=== PATIENT | female | born 1985 | race Hispanic/Latino ===

== ENCOUNTER 2018-12-19 08:05 | Emergency (ER) | payer BC ==
--- OUTSIDE RECORDS SUMMARY | 2018-12-19 08:07 | XMS REPORT ---
:1985 [facility] Address [address] [place] [address] [address] [place] [address] Care Team Providers Name Role Phone Unavailable Unavailable Unavailable Payers Payer Name Policy Type Policy Number Effective Date Expiration Date Problems This patient has no known problems. Allergies, Adverse Reactions, Alerts This patient has no known allergies or adverse reactions. Medications This patient has no known medications. Results Test Description Test Time Test Comments Text Results Atomic Results Result Comments - MRI 2018-06-25 FAX: Tanvir Wilks MD [phone] Camps: PM St: REG FAX: Tamiko BRAIN 11:08:00 Gaurav Page III [phone] W WO CONT Name: YUMIKO CASTILLO [facility] : 1985 Age/S: 32/F [address] [place] Unit # : [id number] Loc: [place] [address] Phys : Gaurav Page III, MD Acct : [id number] Dis Date: Status: REG CLI PHONE #: [phone] Exam Date: 06/25/2018 1050 FAX #: Reason: IACS EXAMS: CPT: [id number] MRI BRAIN W WO CONT 16469 MRI BRAIN WITHOUT AND WITH CONTRAST; IAC PROTOCOL HISTORY: Left pulsatile tinnitus TECHNIQUE: Multiplanar and multiple pulse sequences were obtained throughout the brain without and with gadolinium (19 mL MultiHance). Location: U19. COMPARISON: None FINDINGS: Diffusion weighted imaging shows no evidence of acute ischemia. Pituitary and posterior fossa are unremarkable. No abnormal T2 FLAIR signal noted within the white matter. No hemorrhage, mass, mass effect, hydrocephalus, midline shift or extra-axial fluid collection. No abnormal intracranial enhancement. Additional thin cuts were obtained through the internal auditory canals which are within normal limits. Renal nerves VII and VIII are unremarkable. No abnormal enhancement. No mass. The mastoid air cells are clear. The paranasal sinuses are clear. The globes are unremarkable. IMPRESSION: No evidence of acute ischemia. Unremarkable MRI brain without and with contrast. The internal auditory canals and cranial nerves VII and VIII are within normal limits. at 1108 Reported and signed by: Stephanie Berrios M.D. CC: Tanvir Woods MD; Gaurav Page III, MD Technologist: Mckay Dick, RT(R)(MR) Transcribed Date/Time/By: 06/25/2018 (1108) :[email or web address] Orig Print D/T: S: 06/25/2018 ( 1111) PAGE 1 Signed Report - [facility] 2018-06-25 FAX: Tanvir Wilks MD [phone] Camps: PM St: REG FAX: Y HEAD 11:08:00 Gaurav Page III [phone] W/O --------- CONT Name: CHAD AWANYUMIKO [facility] : 1985 Age/S: 32/F [address] [place] Unit # : [id number] Loc: [place] [address] Phys : Gaurav Page III, MD Acct : [id number] Dis Date: Status: REG CLI PHONE #: [phone] Exam Date: 06/25/2018919 FAX #: Reason: PULSATILE TINNITUS EXAMS: CPT: [id number] MRA HEAD W/O CONT 03597 MRA HEAD WITHOUT CONTRAST HISTORY: Pulsatile tinnitus left ear. COMPARISON: None. TECHNIQUE: 3-D time-of- flight and MIP images were obtained through the [place]. Location: U19. FINDINGS: The distal left vertebral artery is either hypoplastic or occluded. The [place] is intact. No intracranial large vessel occlusion or aneurysm. IMPRESSION: The left vertebral artery is either hypoplastic or occluded. No aneurysm. Electronically Signed by Yuriy Berrios on 2018 at 1108 Reported and signed by: Stephanie Berrios M.D. CC: Tanvir Woods MD; Gaurav Page III, MD Technologist: Mckay Dick, RT(R)(MR) Transcribed Date/Time/By: 06/25/2018 (1108) :[email or web address] Orig Print D/T: S: 06/25/2018 (1111) PAGE 1 Signed Report
[2018-12-19] MEDS ORDERED: IBUPROFEN 400 MG TAB ONE (08:23)
[2018-12-19] MEDS ORDERED: ACETAMINOPHEN 500 MG TAB ONE (08:23)
--- NOTE | 2018-12-19 09:45 | EDPHYS ---
Physician Documentation [facility] Name: Shanti Olvera Age: 33 yrs Sex: Female : 1985 Arrival Date: 12/19/2018 Time: 08:07 Bed 5 Private MD: ED Physician Robby Smith HPI: 12/19 08:27 This 33 yrs old Female presents to ER via Ambulatory with complaints of Toe cp Injury. 08:27 The patient presents with pain, that is acute, tenderness. The complaints affect the cp right foot. Context: resulted from 5 lb weight dropping onto foot. Onset: The symptoms/episode began/occurred yesterday. Associated signs and symptoms: Pertinent negatives: calf tenderness, numbness. 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 - Social history:: Smoking status: Patient/guardian denies using tobacco. - Ebola Screening: : No symptoms or risks identified at this time. ROS: 08:35 Constitutional: Negative for body aches, chills, fever. cp 08:35 MS/extremity: Positive for ecchymosis, pain, swelling, tenderness, of the right foot, Negative for paresthesias. 08:35 Neuro: Negative for numbness. 08:35 All other systems are negative. Exam: 08:40 Constitutional: The patient appears in no acute distress, alert, awake, well developed, cp well nourished. 08:40 Head/Face: Normocephalic, atraumatic. cp 08:40 Musculoskeletal/extremity: Extremities: grossly normal except: noted in the right fourth toe and distal aspect right foot dorsal side: ecchymosis, pain, swelling, tenderness, There is no evidence of decreased ROM, deformity, Perfusion: the extremity is normally perfused throughout, Sensation intact. 08:40 Skin: cellulitis, is not appreciated, no rash present. Vital Signs: 08:27 BP 146 / 95; Pulse 117; Resp 18; Pulse Ox 99% on R/A; Weight 81.65 kg; Height 5 ft. 5 iw in. (165.10 cm); Pain 0/10; 08:36 Temp 97.9(TE); ph 08:27 Body Mass Index 29.95 (81.65 kg, 165.10 cm) iw Procedures: 09:10 Splinting: Splint applied to right foot using post-op shoe. applied by nurse. Examined cp by me, post splint application: neurovascular intact, Patient tolerated well. MDM: 08:13 Patient medically screened. cp 08:55 Test interpretation: by ED physician or midlevel provider: xrays of right foot show cp fracture distal phalanx right fourth toe. 08:58 Data reviewed: vital signs, nurses notes, radiologic studies, plain films. cp 08:58 Counseling: I had a detailed discussion with the patient and/or guardian regarding: the cp historical points, exam findings, and any diagnostic results supporting the discharge/admit diagnosis, radiology results, to return to the emergency department if symptoms worsen or persist or if there are any questions or concerns that arise at home. Response to treatment: the patient's symptoms have markedly improved after treatment, and as a result, I will discharge patient. 12/19 08:16 Order name: XRAY Foot RIGHT 3 View cp 12/19 08:56 [place] [facility] 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 cp 11:48 Co-signature as Attending Physician, Robby Smith MD. rn Disposition: 12/19/18 08:58 Discharged to Home. Impression: Nondisplaced fracture of distal phalanx of right lesser toe(s) - fourth toe. - Condition is Stable. - Discharge Instructions: Toe Fracture. - Prescriptions for Ibuprofen 800 mg Oral Tablet - take 1 tablet by ORAL route every 8 hours As needed take with food; 30 tablet. Tramadol 50 mg Oral Tablet - take 1 tablet by ORAL route every 8 hours as needed; 20 tablet. - Medication Reconciliation Form, Thank You Letter, Antibiotic Education, Prescription Opioid Use form. - Follow up: Private Physician; When: 1 week; Reason: Recheck today's complaints. - Problem is new. - Symptoms have improved. Signatures: Dispatcher [employer] EDChristine Suarez RN RN iw Nieto, Roman, MD MD rn Hall, Patricia, RN RN ph Page, Corey, PA PA cp Corrections: (The following items were deleted from the chart) 09:12 08:58 12/19/2018 08:58 Discharged to Home. Impression: Nondisplaced fracture of distal ph phalanx of right lesser toe(s) - fourth toe. Condition is Stable. Forms are Medication Reconciliation Form, Thank You Letter, Antibiotic Education, Prescription Opioid Use. Follow up: Private Physician; When: 1 week; Reason: Recheck today's complaints. Problem is new. Symptoms have improved. cp
--- NOTE | 2018-12-19 09:45 | ER ---
Nurse's Notes [facility] Name: Shanti Olvera Age: 33 yrs Sex: Female : 1985 Arrival Date: 12/19/2018 Time: 08:07 Bed 5 Private MD: Diagnosis: Nondisplaced fracture of distal phalanx of right lesser toe(s)-fourth toe Presentation: 12/19 08:24 Presenting complaint: Patient states: dropped a weight on her right foot on Saturday, iw bruising and swelling noted to right 4th toe, also feels like her right leg is swelling. Transition of care: patient was not received from another setting of care. Onset of symptoms was December 17, 2018. Risk Assessment: Do you want to hurt yourself or someone else? Patient reports no desire to harm self or others. Initial Sepsis Screen: Does the patient meet any 2 criteria? No. Patient's initial sepsis screen is negative. Does the patient have a suspected source of infection? No. Patient's initial sepsis screen is negative. Care prior to arrival: None. 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 - Social history:: Smoking status: Patient/guardian denies using tobacco. - Ebola Screening: : No symptoms or risks identified at this time. Screenin:18 Abuse screen: Denies threats or abuse. Denies injuries from another. Nutritional ph screening: No deficits noted. Tuberculosis screening: No symptoms or risk factors identified. Fall Risk None identified. Assessment: 08:39 General: Appears in no apparent distress. comfortable, well groomed, Behavior is calm, ph cooperative, appropriate for age. Pain: Complains of pain in right foot. Neuro: Level of Consciousness is awake, alert, obeys commands, Oriented to person, place, time, situation. Cardiovascular: Capillary refill < 3 seconds in bilateral fingers Patient's skin is warm and dry. Respiratory: Airway is patent Respiratory effort is even, unlabored, Respiratory pattern is regular, symmetrical. Derm: Skin is intact, is healthy with good turgor, Skin is pink, warm \T\ dry. Bruising that is dark purple, on right third toe. Musculoskeletal: Circulation, motion, and sensation intact. Range of motion: intact in all extremities. Vital Signs: 08:27 BP 146 / 95; Pulse 117; Resp 18; Pulse Ox 99% on R/A; Weight 81.65 kg; Height 5 ft. 5 iw in. (165.10 cm); Pain 0/10; 08:36 Temp 97.9(TE); ph 08:27 Body Mass Index 29.95 (81.65 kg, 165.10 cm) iw ED Course: 08:07 Patient arrived in ED. as 08:12 Jose M Alfaro PA is PHCP. cp 08:12 Robby Smith MD is Attending Physician. cp 08:18 Merline Matthews, RYAN is Primary Nurse. ph 08:19 Patient has correct armband on for positive identification. Bed in low position. Call ph light in reach. Door closed. Noise minimized. 08:19 Arm band placed on Patient placed in an exam room. ph 08:25 Triage completed. iw 09:01 XRAY Foot RIGHT 3 View In Process Unspecified. EDMS 09:11 Jay tape right third toe and right fourth toe Ortho shoe applied to right foot. ph 09:12 No provider procedures requiring assistance completed. Patient did not have IV access ph during this emergency room visit. Administered Medications: 08:35 Drug: Ibuprofen 800 mg {Note: pt took 400 mg at home [employer], 400 mg dose given.} Route: PO;ph 09:11 Follow up: Response: No adverse reaction ph 08:36 Drug: Tylenol 1000 mg Route: PO; ph 09:11 Follow up: Response: No adverse reaction ph Outcome: 08:58 Discharge ordered by MD. cp 09:12 Discharged to home ambulatory. ph 09:12 Condition: good 09:12 Discharge instructions given to patient, Instructed on discharge instructions, follow up and referral plans. medication usage, Demonstrated understanding of instructions, follow-up care, medications, Prescriptions given X 2. 09:12 Patient left the ED. ph Signatures: Dispatcher [employer] EDNC Magali Magana Irene, RN Merline Bedoya, RYAN RN ph Angelina, Jose M, PA PA cp
--- NOTE | 2018-12-19 10:26 | RAD REPORT ---
EXAM DESCRIPTION: RAD - Foot Right 3 View - 12/19/2018 8:59 am CLINICAL HISTORY: Right foot pain status post injury FINDINGS: Mildly displaced fracture terminal tuft fourth digit. No dislocation
== END 2018-12-19 09:12 | disposition home or self-care (01) ==
LOC: ER 08:05
DX: S92.534A Nondisplaced fracture of distal phalanx of right lesser toe(s), initial encounter for closed fracture (principal); W22.8XXA Striking against or struck by other objects, initial encounter; Y93.89 Activity, other specified; Y92.9 Unspecified place or not applicable; G93.2 Benign intracranial hypertension
CPT/HCPCS: 99284

== ENCOUNTER 2022-03-23 07:27 | Emergency (ER) | payer BC, OTHER ==
--- OUTSIDE RECORDS SUMMARY | 2022-03-23 07:30 | XMS REPORT | Continuity of Care Document ---
:1985 Author Organization [facility] t Address [address] [place] [address] Care Team Providers Name Role Phone YAMILEX ANDERSON Primary Care Physician Unavailable JACKI JONES Attending Clinician Unavailable [id number] Attending Clinician Unavailable TESTING, LJ RUFINO PAUL Attending Clinician Unavailable DEB MARR Attending Clinician Unavailable Deb Marr PA-C Attending Clinician Lab, Adc Fam Pob I Attending Clinician Unavailable Lynn Valdez Attending Clinician LYNN LUCAS Attending Clinician Unavailable Payers Payer Name Policy Type Policy Number Effective Date Expiration Date Myrna garcia AETNA 2 [id number] 2021 00:00:00 [facility] - [id number] 2019 2021 00:00:0 0 OUT OF STATE 00:00:00 Problems Condition Condition Condition Status Onset Resolution Last Treating Co mments Source Name Details Category Date Date Treatment Clinician Date Routine Routine Diagnosis Active 2020-06-30 Memoria general general 03:05:50 l medical medical [place] examinatio examinatio n at a n at a [facility] care care facility facility Active Diagnosis 06/30/2020 Genaro Newman Need for Need for Diagnosis Active 2020-06-30 Memoria prophylact prophylact 03:05:50 l ic ic [place] vaccinatio vaccinatio n and n and inoculatio inoculatio n against n against influenza influenza Active Diagnosis 06/30/2020 Genaro Newman Exposure Exposure Diagnosis Active 2020-06-30 Memoria to to 03:05:50 l COVID-19 COVID-19 Erick n virus virus Active Diagnosis 06/30/2020 Genaro Newman BMI BMI Problem Active 2020-07-20 Memor ia 27.0-27.9, 27.0-27.9, 02:02:58 l adult adult [place] Active Problem 07/20/2020 Genaro Newman 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, disorder, Herm emy single single episode, episode, moderate moderate Active Problem 07/20/2020 Genaro Newman BMI BMI Problem Active 2020-07-20 Memor ia 26.0-26.9, 26.0-26.9, 02:02:58 l adult adult [place] Active Problem 07/20/2020 Genaro Newman Vitamin D Vitamin D 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 02:02:58 l Active [place] Problem 07/20/2020 Genaro Newman Heavy Heavy Problem Active 2020-07-20 Memor ia menstrual menstrual 02:02:58 l bleeding bleeding Erick n Active Problem 07/20/2020 Genaro Newman Paresthesi Paresthes Problem Active 2020-07-20 Memoria a of both ia of both 02:02:58 l hands hands [place] Active Problem 07/20/2020 Genaro Newman BMI BMI Problem Active 2020-07-20 Memor ia 24.0-24.9, 24.0-24.9, 02:02:58 l adult adult [place] Active Problem 07/20/2020 Genaro Newman No known No known Disease Unive rs active active ity of problems problems [facility] Allergies, Adverse Reactions, Alerts Allergy Allergy Status Severity Reaction(s) Onset Inactive Treating Comm ents Source Name Type Date Date Clinician NO KNOWN Drug Active Univers ALLERGIE Class ity of S [facility] Social History Social Habit Start Date Stop Date Quantity Comments Source History SDOH University o f Alcohol Frequency [facility] History SDOH University o f Alcohol Std [facility] Dr[facility] History SDNV University o f Alcohol Binge [facility] Exposure to Yes University SARS-CoV-2 [facility] (event) [facility] Tobacco use and 2021-04-30 2021-04-30 Never used Universit y of exposure 00:00:00 00:00:00 [facility] Alcohol intake 2021-04-30 2021-04-30 Ex-drinker University of 00:00:00 00:00:00 (finding) [facility] Alcohol Comment 2021-04-30 2021-04-30 social Universit y of 00:00:00 00:00:00 [facility] Sex Ass[birth year] At [birth year] Universit y of 00:00:00 00:00:00 [facility] Smoking Status Start Date Stop Date Source Unknown if ever smoked Universit y of [facility] Never smoker [facility] Medications Ordered Filled Start Stop Current Ordering Indication Dosage Frequency Signature Comments Components Source Medication Medication Date Date Medication? Clinician (SIG) Name Name amoxicillin 2020-05 Yes [id number] 500mg Take 1 Univers 500 mg 2-26 capsule by ity of capsule 00:00: mouth 2 00 (two) Medical times Branch daily. Vitamin Yes Genaro as Memoria B-12 2-25 Mussaji directed l 03:05: [place] 50 AcetaZOLAMI Yes Genaro 1 tablet Memoria DE 2-25 Mussaji l 03:05: [place] 50 Vitamin D3 Yes Genaro 1 capsule Memoria 2-25 Mussaji l 03:05: [place] 50 AcetaZOLAMI 0 Yes Genaro 2 capsules Memoria DE ER 2-25 Mussaji l 03:05: [place] 50 Trintellix 2019-0 Yes Genaro 1 tablet Memoria 3-06 Mussaji l 00:00: [place] 00 AcetaZOLAMI 2019-0 Yes Genaro 1 capsule Memoria DE ER 2-12 Mussaji l 03:05: [place] 04 Lexapro 2019-0 Yes Genaro 1 tablet Mem oria 2-12 Mussaji l 03:05: [place] Immunizations Ordered Immunization Filled Immunization Date Status Commen ts Source Name Name INFLUENZA 2020-06-10 Completed [facility] FLUZONE>3YRS 0.5ML 00:00:00 Erick stacy (COMMERCIAL) Vital Signs Vital Name Observation Time Observation Value Comments Source Systolic blood 2021-05-01 01:03:00 124 mm[Hg] Univer [facility]ity [facility] Diastolic blood 2021-05-01 01:03:00 83 mm[Hg] Unive rsity [facility] Heart rate 2021-05-01 01:03:00 97 /min Universi [facility] Body temperature 2021-05-01 01:03:00 37.17 [facility] Respiratory rate 2021-05-01 01:03:00 18 /min [facility] Body height 2021-05-01 01:03:00 [facility] weight 2021-05-01 01:03:00 67.813 [facility] BMI 2021-05-01 01:03:00 24.88 kg/m2 [facility] Oxygen saturation in 2021-05-01 01:03:00 98 /min [facility] Arterial blood by [facility] Pulse oximetry Branch Heart Rate 2020-06-10 20:15:00 [facility] [place] Diastolic (mm Hg) 2020-06-10 20:15:00 Mem orial [place] Systolic (mm Hg) 2020-06-10 20:15:00 Mike rial [place] Temperature Oral (F) 2020-06-10 20:15:00 98.4 F [facility] [place] Weight 2020-06-10 20:15:00 [facility] [place] Height 2020-06-10 20:15:00 [facility] [place] Heart Rate 2019-05-21 15:15:00 [facility] [place] Diastolic (mm Hg) 2019-05-21 15:15:00 Mem orial [place] Systolic (mm Hg) 2019-05-21 15:15:00 Mike rial [place] Temperature Oral (F) 2019-05-21 15:15:00 98.8 F [facility] [place] Weight 2019-05-21 15:15:00 [facility] 2019-05-21 15:15:00 [facility] [place] Procedures This patient has no known procedures. Encounters Start End Encounter Admission Attending Care Care Encounter Source Date/Time Date/Time Type Type Clinicians Facility Department ID 2022-03-23 Outpatient [id number] Memoria 07:30:06 [id number] [place] [id number] 2021-12-27 2021-12-27 Outpatient LARUENCE JONES [id number] [place] 00:00:00 00:00:00 JACKI Seybol d 2021-12-26 2021-12-26 Outpatient [id number] ALURENCE NOLASCO [id number] [place] 14:10:00 14:10:00 Seybol d 2021-12-26 2021-12-26 Outpatient LAURENCE JONES [id number] [place] 14:00:00 14:00:00 JACKI Seybol d 2021-12-26 2021-12-26 Outpatient TESTING, LJ LAURENCE NOLASCO [id number] [place] 14:00:00 14:00:00 Seybol d 2021-12-26 2021-12-26 Telemedici Demar JONES [id number] [place] 10:45:00 10:45:00 ne JACKI Watters [id number] Se ybold [id number] 2021-04-30 2021-04-30 Outpatient R JUSTA [facility] [id number] Univers 18:00:00 19:58:33 [facility] 2021-04-30 2021-04-30 [facility] [id number] Univers 18:00:00 18:20:00 Care [facility] [id number] it y of [place] [id number] Luis Angel as CALLY?BLEA [id number] Fl [address] MEDICAL OFFICE BUILDING 2021-04-30 2021-04-30 Outpatient R [facility] [id number] Univers 18:00:00 18:00:00 [id number] [facility] 2020-06-17 2020-06-17 [place] [id number] Memoria 16:12:00 16:12:[address] [facility] 2020-06-17 2020-06-17 [place] [id number] Memoria 16:02:00 16:02:[address] [facility] 2020-06-13 2020-06-13 Outpatient [place] [id number] Memoria 09:18:00 09:18:00 [facility] 2020-06-10 2020-06-10 Outpatient [place] [id number] Memoria 14:15:00 14:15:00 [facility] 2019-10-29 2019-10-29 Laboratory Lab, Adc Fam [facility]ob [facility] [id number] Univers 16:46:06 17:06:06 [facility] [id number] [facility] [id number] Luis Angel as Professio [id number] [address] Office Building One 2019-10-29 2019-10-29 [facility] [id number] Univers 17:00:00 [facility]00[facility] 2019-09-17 2019-09-17 Outpatient [place] [id number] Memoria 23:09:00 23:09:00 [facility] 2019-08-07 2019-08-07 Outpatient [place] [id number] Memoria 11:35:00 11:35:00 [facility] 2019-07-09 2019-07-09 Outpatient [place] [id number] Memoria 09:57:00 09:57:00 [facility] 2019-06-05 2019-06-05 Outpatient [place] [id number] Memoria 06:12:00 06:12:00 [facility] 2019-05-29 2019-05-29 Outpatient [place] [id number] Memoria 17:46:00 17:46:00 [facility] 2019-05-21 2019-05-21 Outpatient [place] [id number] Memoria 09:15:00 09:15:00 [facility] Results Test Description Test Time Test Comments Results Result [facility] e Comments - MRI BRAIN W WO 2018-06-25 FAX: Tamiko CampbellTanvir mckeon CONT 11:08:00 Myah VEGAS [phone] Camps: PM St: REG FAX: Gaurav Cook III [phone] Name: YUMIKO CASTILLO [facility] : 1985 Age/S: 32/F [address] Unit #: [id number] Loc: [place] [address] Phys: Gaurav Page III, MD Acct: [id number] Dis Date: Status: REG CLI PHONE #: [phone] Exam Date: 06/25/2018 1050 FAX #: Reason: IACS EXAMS: CPT: [id number] MRI BRAIN W WO CONT 25174 MRI BRAIN WITHOUT AND WITH CONTRAST; IAC [...] Technologist: Mckay Dick, RT(R)(MR) Transcribed Date/Time/By: 06/25/2018 (8038) :[email or web address] Orig Print D/T: S: 06/25/2018 (1111) PAGE 1 Signed Report - MRA HEAD W/O 2018-06-25 FAX: Tanvir Wilks CONT 11:08:00 Myah [place] [phone] Camps: PM St: REG FAX: Gaurav Cook III [phone] Name: YUMIKO CASTILLO [facility] : 1985 Age/S: 32/F [address] Unit #: [id number] Loc: [place] [address] Phys: Gaurav Page III, MD Acct: [id number] Dis Date: Status: REG CLI PHONE #: [phone] Exam Date: 06/25/2018 0920 FAX #: Reason: PULSATILE TINNITUS EXAMS: CPT: [id number] MRA HEAD W/O CONT 95042 MRA HEAD WITHOUT CONTRAST HISTORY: Pulsatile tinnitus left ear. COMPARISON: None. TECHNIQUE: 3-D [id number] and MIP images were obtained through the [place]. Location: U19. FINDINGS: The distal left vertebral artery is either hypoplastic or occluded. The [place] is intact. No intracranial large vessel occlusion or aneurysm. IMPRESSION: The left vertebral artery is either hypoplastic or occluded. No aneurysm. at 1108 Reported and signed by: Stephanie Berrios M.D. CC: Tanvir Woods MD; Gaurav Page III, MD Technologist: Mckay Dick, RT(R)(MR) Transcribed Date/Time/By: 06/25/2018 (1108) :[email or web address] Orig Print D/T: S: 06/25/2018 (1111) PAGE 1 Signed Report
[2022-03-23] MEDS ORDERED: NA CHLORIDE 0.9% 1,000 ML ONE ×2 (07:48→10:45)
[2022-03-23] MEDS ORDERED: FAMOTIDINE 20 MG/2 ML VIAL IV ONE (07:48)
[2022-03-23] MEDS ORDERED: ONDANSETRON 4 MG/2 ML VIAL ONE (07:48)
[2022-03-23] MEDS ORDERED: MORPHINE 4 MG/ML SYR ONE (07:48)
[2022-03-23 08:27] LABS: Absolute Lymphocytes (CBC) 2.5 K/uL (0.7-4.9); Hematocrit 36.5 % (36.0-45.0); Lymphocytes % 31.8 % (15.3-44.8); MCV 83.3 fL (80-100); MPV 9.3 fL (7.6-11.3); RBC Red Blood Cell Count 4.38 M/uL (3.86-4.86)
[2022-03-23 08:30] LABS: Urine Blood Negative (Negative); Urine Glucose Negative (Negative); Urine Protein Trace (Negative); Urine Specific Gravity >=1.030 (1.005-1.030); Urine pH 6.5 (5.0-7.0)
[2022-03-23 09:13] LABS: Calcium Oxalate Crystals- Ur Moderate /HPF (None Seen); Urine Bacteria <20 /HPF (<20); Urine Mucus 3+ /HPF (None Seen); Urine RBC <5 /HPF (None Seen)
[2022-03-23 09:17] LABS: Albumin 3.1 g/dL (3.4-5.0); Bilirubin Total 0.4 mg/dL (0.2-1.0); Potassium 3.9 mmol/L (3.5-5.1); Protein, Total 6.5 g/dL (6.4-8.2)
--- NOTE | 2022-03-23 09:48 | RAD REPORT ---
EXAM DESCRIPTION: CT - Abdomen Pelvis W Contrast - 03/23/2022 9:29 am CLINICAL HISTORY: Abdominal pain, acute, nonlocalized COMPARISON: No comparisons TECHNIQUE: Biphasic, helical CT imaging of the abdomen and pelvis was performed following 100 ml non -ionic IV contrast. Oral contrast: No. All CT scans are performed using dose optimization technique as appropriate and may include automated exposure control or mA/KV adjustment according to patient size. FINDINGS: No suspicious findings in the lung bases. The liver, spleen, and pancreas show no suspicious findings. Gallbladder is absent. No abnormal bilia ry tree dilatation. Symmetric renal function is seen with no hydronephrosis or suspicious renal mass. No obstructing or n onobstructing calculi. Phleboliths seen in the lower pelvis on the right. No pyelonephritis or acute parenchymal process. No bladder abnormalities. No adrenal abnormalities. No significant uterine findi ng. There is a small 15 mm fundal fibroid seen. Left ovary is unremarkable. Right ovary contains an 1 8 millimeter cyst. No cyst rupture or hemorrhage findings. No fallopian tube dilatation. No dilated bowel loops or bowel wall thickening. No findings for appendicitis. No free air, free flui d or inflammatory stranding. No hernia, mass or bulky lymphadenopathy. No suspicious bony findings. IMPRESSION: Contrast enhanced CT abdomen and pelvis showing no significant or suspicious finding. Nonacute findings detailed in the body of the report.
[2022-03-23 10:08] LABS: Platelet Estimate ADEQ; White Blood Cell Scan OK (OK)
[2022-03-23 10:11] LABS: Blood Morphology Comment NOT SEEN (NOT SEEN)
[2022-03-23] MEDS ORDERED: KETOROLAC 30 MG/ML INJ ONE (10:45)
--- NOTE | 2022-03-23 10:48 | EDPHYS ---
Physician Documentation [facility] Name: Shanti Olvera Age: 36 yrs Sex: Female : 1985 Arrival Date: 03/23/2022 Time: 07:29 Bed 14 Private MD: AWILDA Physician Jose M Marti HPI: 03/23 08:07 This 36 yrs old Female presents to ER via Ambulatory with complaints of angel Abdominal Pain. 08:07 The patient presents with abdominal pain in the upper abdomen, in the lower abdomen. angel Onset: The symptoms/episode began/occurred this morning. The symptoms radiate to right back. Associated signs and symptoms: Pertinent positives: nausea. The symptoms are described as constant, sharp. Modifying factors: The symptoms are alleviated by nothing, remaining still, the symptoms are aggravated by movement, pressure. Severity of pain: At its worst the pain was moderate in the emergency department the pain is unchanged. The patient has not experienced similar symptoms in the past. DIRECTOR OF CLINICAL TRIALS: 07:36 LMP 03/09/2022 ss Historical: - Allergies: 07:36 No Known Allergies; ss - Home Meds: 07:36 acetazolamide 500 mg oral cpER 2 tab 2 times per day [Active]; ss - PMHx: 07:36 intracranial hypertension; pseudo tumor; ss - PSHx: 07:36 Cholecystectomy; ss - Immunization history:: Client reports receiving the 2nd dose of the Covid vaccine. - Social history:: Smoking status: Patient denies any tobacco usage or history of. - Family history:: not pertinent. ROS: 08:07 Constitutional: Negative for fever, chills, and weight loss, Eyes: Negative for injury, angel pain, redness, and discharge, ENT: Negative for injury, pain, and discharge, Neck: Negative for injury, pain, and swelling, Cardiovascular: Negative for chest pain, palpitations, and edema, Respiratory: Negative for shortness of breath, cough, wheezing, and pleuritic chest pain, Back: Negative for injury and pain, : Negative for injury, bleeding, discharge, and swelling, MS/Extremity: Negative for injury and deformity, Skin: Negative for injury, rash, and discoloration, Neuro: Negative for headache, weakness, numbness, tingling, and seizure, Psych: Negative for depression, anxiety, suicide ideation, homicidal ideation, and hallucinations, Allergy/Immunology: Negative for hives, rash, and allergies, Endocrine: Negative for neck swelling, polydipsia, polyuria, polyphagia, and marked weight changes, Hematologic/Lymphatic: Negative for swollen nodes, abnormal bleeding, and unusual bruising. 08:07 Abdomen/GI: Positive for abdominal pain, of the right upper quadrant, left upper quadrant, right lower quadrant and left lower quadrant. Exam: 08:07 Constitutional: This is a well developed, well nourished patient who is awake, alert, angel and in no acute distress. Head/Face: Normocephalic, atraumatic. Eyes: Pupils equal round and reactive to light, extra-ocular motions intact. Lids and lashes normal. Conjunctiva and sclera are non-icteric and not injected. Cornea within normal limits. Periorbital areas with no swelling, redness, or edema. ENT: Nares patent. No nasal discharge, no septal abnormalities noted. Tympanic membranes are normal and external auditory canals are clear. Oropharynx with no redness, swelling, or masses, exudates, or evidence of obstruction, uvula midline. Mucous membranes moist. Neck: Trachea midline, no thyromegaly or masses palpated, and no cervical lymphadenopathy. Supple, full range of motion without nuchal rigidity, or vertebral point tenderness. No Meningismus. Chest/axilla: Normal chest wall appearance and motion. Nontender with no deformity. No lesions are appreciated. Cardiovascular: Regular rate and rhythm with a normal S1 and S2. No gallops, murmurs, or rubs. Normal PMI, no JVD. No pulse deficits. Respiratory: Lungs have equal breath sounds bilaterally, clear to auscultation and percussion. No rales, rhonchi or wheezes noted. No increased work of breathing, no retractions or nasal flaring. Back: No spinal tenderness. No costovertebral tenderness. Full range of motion. Skin: Warm, dry with normal turgor. Normal color with no rashes, no lesions, and no evidence of cellulitis. MS/ Extremity: Pulses equal, no cyanosis. Neurovascular intact. Full, normal range of motion. Neuro: Awake and alert, GCS 15, oriented to person, place, time, and situation. Cranial nerves II-XII grossly intact. Motor strength 5/5 in all extremities. Sensory grossly intact. Cerebellar exam normal. Normal gait. Psych: Awake, alert, with orientation to person, place and time. Behavior, mood, and affect are within normal limits. 08:07 Abdomen/GI: Inspection: abdomen appears normal, Bowel sounds: normal, Palpation: abdomen is soft and non-tender, Liver: no appreciated palpable abnormalities, Hernia: not appreciated. Vital Signs: 07:35 BP 142 / 90; Pulse 90; Resp 18; Temp 98.4(TE); Pulse Ox 100% ; Weight 72.57 kg; Height ss 5 ft. 5 in. (165.10 cm); Pain 10/10; 07:50 BP 126 / 88; Pulse 87; Resp 15; Pulse Ox 100% on R/A; vg1 09:50 BP 99 / 68; Pulse 75; Pulse Ox 100% on R/A; kr3 11:29 BP 108 / 68; Pulse 80; Resp 16; Pulse Ox 100% on R/A; kr3 07:35 Body Mass Index 26.63 (72.57 kg, 165.10 cm) ss MDM: 07:38 Patient medically screened. angel 08:09 Differential diagnosis: bowel obstruction, diverticulitis, Endometriosis, non-specific angel abd pain, pancreatitis, Peptic Ulcer Disease, Peritonitis, Ureterolithiasis, urinary tract infection. Data reviewed: vital signs, nurses notes, lab test result(s), radiologic studies, CT scan. Data interpreted: ekg monitor tech: rate is 90 beats/min, rhythm is regular, Pulse oximetry: on room air is 100 %. Test interpretation: by ED physician or midlevel provider:. Counseling: I had a detailed discussion with the patient and/or guardian regarding: the historical points, exam findings, and any diagnostic results supporting the discharge/admit diagnosis, lab results, radiology results. 03/23 07:42 Order name: CBC with Diff; Complete Time: 10:45 angel 03/23 07:42 Order name: CMP; Complete Time: 09:23 angel 03/23 07:42 Order name: Lipase; Complete Time: 09:23 angel 03/23 07:42 Order name: Urine Microscopic Only; Complete Time: 09:16 angel 03/23 08:31 Order name: CBC Smear Scan; Complete Time: 10:45 EDMS 03/23 08:31 Order name: Urine Dipstick-Ancillary; Complete Time: 08:46 EDMS 03/23 07:42 Order name: CT Abd/Pelvis - IV Contrast Only; Complete Time: 09:53 [facility] 03/23 08:32 Order name: Urine --Ancillary (enter results) 03/23 07:42 Order name: IV Saline Lock; Complete Time: 08:16 [facility] 03/23 07:42 Order name: Labs collected and sent; Complete Time: 08:16 [facility] 03/23 07:42 Order name: Urine Dipstick-Ancillary (obtain specimen); Complete Time: 08:41 [facility] 03/23 07:42 Order name: Urine Test (obtain specimen); Complete Time: 08:41 [facility] 03/23 08:37 Order name: Labs - recollect needed: recollect light gree hemolyzed; Complete Time: eb 08:45 Administered Medications: 08:10 Drug: NS 0.9% 1000 ml Route: IV; Rate: 1 bolus; Site: right forearm; vg1 09:11 Follow up: IV Status: Completed infusion; IV Intake: 1000ml vg1 08:10 Drug: Zofran (Ondansetron) 4 mg Route: IVP; Site: right forearm; vg1 08:12 Drug: Pepcid (famotidine) 20 mg Route: IVP; Site: right forearm; vg1 08:14 Drug: morphine 4 mg Route: IVP; Infused Over: 4 mins; Site: right forearm; vg1 10:55 Drug: Ketorolac 30 mg Route: IVP; Site: right wrist; kr3 11:31 Follow up: Response: No adverse reaction; RASS: Alert and Calm (0) kr3 10:56 Drug: NS 0.9% 1000 ml Route: IV; Rate: 1 bolus; Site: right wrist; kr3 11:31 Follow up: Response: No adverse reaction; IV Status: Order to discontinue infusion; IV kr3 Intake: 300ml Disposition Summary: 03/23/22 10:47 Discharge Ordered Location: Home angel Problem: new angel Symptoms: have improved angel Condition: Stable angel Diagnosis - Epigastric abdominal tenderness angel - Nausea angel - Abnormal level of enzymes in specimens from digestive organs and abdominal cavity - angel elevated Lipase, 4876 Followup: angel - With: Private Physician - When: 2 - 3 days - Reason: Recheck today's complaints, Continuance of care, Re-evaluation by your physician Followup: angel - With: Dayanara Wilson MD - When: 2 - 3 days - Reason: Recheck today's complaints, Re-evaluation by your physician Discharge Instructions: - Discharge Summary Sheet angel - Abdominal Pain, Adult angel - Nausea and Vomiting, Adult angel - Nausea, Adult angel - Acute Pancreatitis angel - Acute Pancreatitis, Htqq-dt-Lyhn angel - Nausea and Vomiting, Adult, Ibmy-su-Mpvs angel - Abdominal Pain, Adult, Hovs-ev-Axsz angel - Nausea, Adult, Ixos-jo-Jxzp angel - Pancreatitis Eating Plan [facility] Forms: - Medication Reconciliation Form [facility] - Thank You Letter angel - Antibiotic Education angel - Prescription Opioid Use [facility] - Work release form kr3 Prescriptions: - Protonix 40 mg Oral Tablet - take 1 tablet by ORAL route once daily; 30 tablet; Refills: 0, Product angel Selection Permitted - Zofran 4 mg Oral Tablet - take 1 tablet by ORAL route every 12 hours As needed; 20 tablet; Refills: 0, angel Product Selection Permitted - dicyclomine 20 mg Oral Tablet - take 1 tablet by ORAL route 4 times per day; 28 tablet; Refills: 0, Product [facility] Selection Permitted Signatures: Dispatcher [employer] Jose M Kline MD MD cha Smirch, Shelby, RN RN ss Lila Baxter Victoria, RN RN vg1 Zenaida Rouse RN RN kr3
--- NOTE | 2022-03-23 10:48 | ER ---
Nurse's Notes [facility] Name: Shanti Olvera Age: 36 yrs Sex: Female : 1985 Arrival Date: 03/23/2022 Time: 07:29 Bed 14 Private MD: Diagnosis: Epigastric abdominal tenderness;Nausea;Abnormal level of enzymes in specimens from digestive organs and abdominal cavity-elevated Lipase, [id number] Presentation: 03/23 07:35 Chief complaint: Patient states: sudden onset of generalized abd cramping that began 30 ss minutes ago. + nausea. Coronavirus screen: Client denies travel out of the [place] in the last 14 days. Ebola Screen: Patient denies exposure to infectious person. Patient denies travel to an Ebola-affected area in the 21 days before illness onset. Initial Sepsis Screen: Does the patient meet any 2 criteria? No. Patient's initial sepsis screen is negative. Does the patient have a suspected source of infection? No. Patient's initial sepsis screen is negative. Risk Assessment: Do you want to hurt yourself or someone else? Patient reports no desire to harm self or others. Onset of symptoms was March 23, 2022. 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 - Social history:: Smoking status: Patient denies any tobacco usage or history of. - Family history:: not pertinent. Screenin:21 Abuse screen: Denies threats or abuse. Nutritional screening: No deficits noted. vg1 Tuberculosis screening: No symptoms or risk factors identified. Fall Risk No fall in past 12 months (0 pts). No secondary diagnosis (0 pts). IV access (20 points). Ambulatory Aid- None/Bed Rest/Nurse Assist (0 pts). Gait- Normal/Bed Rest/Wheelchair (0 pts) Mental Status- Oriented to own ability (0 pts). Total Vargas Fall Scale indicates No Risk (0-24 pts). Assessment: 07:45 General: Appears in no apparent distress. uncomfortable, Behavior is calm, cooperative. vg1 Pain: Complains of pain in back and abdomen Pain currently is 10 out of 10 on a pain scale. Quality of pain is described as crampy, Pain began 1 hour ago. Noted to be grimacing, guarding. Neuro: Level of Consciousness is awake, alert, obeys commands, Oriented to person, place, time, situation. Cardiovascular: Patient's skin is warm and dry. Respiratory: Airway is patent Respiratory effort is even, unlabored. GI: Abdomen is flat, Last BM was March 23, 2022. Bowel sounds present X 4 quads. Abdomen is tender to palpation X 4 quads. Reports nausea, vomiting. : Denies burning with urination, pain with urination urinary frequency. EENT: No signs and/or symptoms were reported regarding the EENT system. Derm: Skin is pink, warm \T\ dry. Musculoskeletal: Circulation, motion, and sensation intact. Vital Signs: 07:35 BP 142 / 90; Pulse 90; Resp 18; Temp 98.4(TE); Pulse Ox 100% ; Weight 72.57 kg; Height ss 5 ft. 5 in. (165.10 cm); Pain 10/10; 07:50 BP 126 / 88; Pulse 87; Resp 15; Pulse Ox 100% on R/A; vg1 09:50 BP 99 / 68; Pulse 75; Pulse Ox 100% on R/A; kr3 11:29 BP 108 / 68; Pulse 80; Resp 16; Pulse Ox 100% on R/A; kr3 07:35 Body Mass Index 26.63 (72.57 kg, 165.10 cm) ED Course: 07:29 Patient arrived in ED. as 07:36 Triage completed. ss 07:36 Arm band placed on right wrist. ss 07:38 Jose M Marti MD is Attending Physician. [facility] 07:42 Margy Wolfe, RYAN is Primary Nurse. vg1 07:45 Patient has correct armband on for positive identification. Placed in gown. Bed in low vg1 position. Call light in reach. Side rails up X 1. Pulse ox on. NIBP on. 08:00 Initial lab(s) drawn, by me, sent to lab. Missed attempt(s): 20 gauge in right vg1 antecubital area. 08:09 Inserted saline lock: 22 gauge in right forearm, using aseptic technique. vg1 09:31 CT Abd/Pelvis - IV Contrast Only In Process Unspecified. EDMS 10:45 Dayanara Wilson MD is Referral Physician. angel Administered Medications: 08:10 Drug: NS 0.9% 1000 ml Route: IV; Rate: 1 bolus; Site: right forearm; vg1 09:11 Follow up: IV Status: Completed infusion; IV Intake: 1000ml vg1 08:10 Drug: Zofran (Ondansetron) 4 mg Route: IVP; Site: right forearm; vg1 08:12 Drug: Pepcid (famotidine) 20 mg Route: IVP; Site: right forearm; vg1 08:14 Drug: morphine 4 mg Route: IVP; Infused Over: 4 mins; Site: right forearm; vg1 10:55 Drug: Ketorolac 30 mg Route: IVP; Site: right wrist; kr3 11:31 Follow up: Response: No adverse reaction; RASS: Alert and Calm (0) kr3 10:56 Drug: NS 0.9% 1000 ml Route: IV; Rate: 1 bolus; Site: right wrist; kr3 11:31 Follow up: Response: No adverse reaction; IV Status: Order to discontinue infusion; IV kr3 Intake: 300ml Medication: 08:21 VIS not applicable for this client. vg1 Intake: 09:11 IV: 1000ml; Total: 1000ml. vg1 11:31 IV: 300ml; Total: 1300ml. kr3 Outcome: 10:47 Discharge ordered by . [facility] 11:32 Patient left the ED. kr3 Signatures: Dispatcher [employer] EDW[place] Jose M Marti MD MD cha Martinez, Amelia as Smirch, Shelby, RN RN ss Garcia, Victoria, RN RN 1 Zenaida Rouse RN RN kr3
[2022-03-23 11:52] VITALS: TEMP 98.4; O2SAT 100
[2022-03-23 12:04] VITALS: BP 108/68
== END 2022-03-23 11:32 | disposition home or self-care (01) ==
LOC: ER 07:27
DX: R10.816 Epigastric abdominal tenderness (principal); R11.0 Nausea; R85.0 Abnormal level of enzymes in specimens from digestive organs and abdominal cavity; I10 Essential (primary) hypertension
CPT/HCPCS: 85025; 36415; 81025; 83690; 80053; 74177; 99284; Q9967; J7030 ×2; J2405; 81003; 81015